=== PATIENT | male | born 1960 | race African-American/Black ===

== ENCOUNTER 2019-11-06 13:23 | Emergency (ER) | payer MEDICAID ==
[~2019-11-06] VITALS: Ht 185.4 cm; Wt 100.0 kg
[2019-11-06 13:28] VITALS: BP 138/74
[2019-11-06] MEDS ORDERED: HYDROCODONE/ACETAMINOPHEN 5/325MG TABLET PO ONE ×2 (13:45→15:00)
== END 2019-11-06 15:32 | disposition home or self-care (01) ==
LOC: ER 13:45
DX: S80.02XA Contusion of left knee, initial encounter (principal); W22.8XXA Striking against or struck by other objects, initial encounter; Y93.89 Activity, other specified; Y92.89 Other specified places as the place of occurrence of the external cause
CPT/HCPCS: 73560; 99283; L1830; Z7610